=== PATIENT | female | born 1975 | race Caucasian/White ===

== ENCOUNTER 2017-02-08 10:22 | Emergency (ER) | payer OTHER ==
[2017-02-08 10:35] VITALS: BP 115/62; PULSE 73; RESP 18; TEMP 98; O2SAT 97
--- NOTE | 2017-02-08 11:23 | UCPHY ---
H & P Time Seen by Provider: 02/08/17 11:11 Patient Type: Established HPI/ROS: CHIEF COMPLAINT: Sore throat HISTORY OF PRESENT ILLNESS: 41-year-old female presents with a sore throat which has been present for 1 week. Had slight congestion and nasal discharge. Minimal cough. The symptoms have improved but the sore throat has continued. Has had a history of 3 other strep throat infections this season. Low-grade fever only. No chest pain, shortness of breath, palpitations, vomiting, diarrhea, urinary complaints, headache, lightheadedness. REVIEW OF SYSTEMS: Aside from elements discussed in the HPI, a comprehensive 10-point review of systems was reviewed and is negative. PAST MEDICAL HISTORY: Denies. SOCIAL HISTORY: Nonsmoker. VITAL SIGNS: see nurse's notes. GENERAL: Well-developed, well-nourished, in no acute distress. HEENT: Atraumatic Eyes: PERRL, EOMI, no conjunctival injection. Ears: TM clear bilaterally. Nose: No discharge. Mouth: moist mucous membranes. Pharynx: Moderate erythema, no exudates, slight swelling of the posterior pharyngeal wall, no abscess. Uvula is midline. NECK: Supple, no adenopathy, no meningismus, no tenderness. Negative Kernig's and Brudzinski's. LUNGS: Clear to auscultation bilaterally, no wheezes, rhonchi or rales. CARDIAC: Regular rate and rhythm, no rubs, murmurs or gallops. ABDOMEN: Soft, nontender, bowel sounds normal. EXTREMITIES: Normal, no edema, FROM. NEURO: Alert and oriented, grossly nonfocal. SKIN: Warm and dry, no rash. PSYCHIATRIC: Normal mentation, no agitation. Smoking Status: Never smoked Constitutional: Initial Vital Signs Temperature (C) 36.6 C 02/08/17 10:32 Heart Rate 73 02/08/17 10:32 Respiratory Rate 18 02/08/17 10:32 Blood Pressure 115/62 02/08/17 10:32 O2 Sat (%) 97 02/08/17 10:32 O2 Delivery Mode Room Air Allergies/Adverse Reactions: No Known Allergies Allergy (Verified 08/09/16 08:55) Home Medications: Medication Instructions Recorded Bcp 12/31/14 AZITHROMYCIN [Z-PACK] 250 - 500 mg PO DAILY #6 tab 02/08/17 MDM/Departure - MDM ED Course/Re-evaluation: 41-year-old female with sore throat. Rapid strep is positive. Patient was encouraged to follow up with the primary care physician for further testing regarding chronic carrier status of strep, since this will be her 4th strep infection this season. Differential Diagnosis: Differential diagnosis for the patient's sore throat was considered including but not limited to viral pharyngitis, bacterial pharyngitis, tonsillitis, tonsillar abscess, peritonsillar abscess, foreign body, epiglottitis, bacterial tracheitis. - Depart Disposition: Home, Routine, Self-Care Clinical Impression: Pharyngitis, Strep throat Condition: Good Instructions: Pharyngitis (ED), Strep Throat (ED) Additional Instructions: Your rapid strep screen is positive. I have given you a prescription for azithromycin. Please take this as directed. For your sore throat, I suggest ibuprofen 400-600 mg every 6-8 hours to help with pain and swelling. Salt water gargles and throat lozengers will also be helpful. Please follow up with your primary care physician sometime next week. I ask him to consider whether you may be a strep carrier. Prescriptions: AZITHROMYCIN [Z-PACK] 250 - 500 mg PO DAILY #6 tab Referrals: Raul Fish PA [Primary Care Provider] - As per Instructions - PQRS PQRS Measurement: Not applicable
== END 2017-02-08 11:30 | disposition home or self-care (01) ==
LOC: CED 10:22
DX: J02.0 Streptococcal pharyngitis (principal)
CPT/HCPCS: 87880-PO; G0463-PO